=== PATIENT | female | born 1980 | race Caucasian/White ===

== ENCOUNTER → 2022-02-06 14:52 | Outpatient (BNVA) | payer OTHER, SELFPAY | PROVIDERS: Visit Provider Obstetrics & Gynecology | DX: N92.1 Excessive and frequent menstruation with irregular cycle (principal); N94.89 Other specified conditions associated with female genital organs and menstrual cycle; R10.2 Pelvic and perineal pain | CPT/HCPCS: 76830; 81000; 87086; 87624 ==

== ENCOUNTER 2022-02-11 12:11 | Day surgery (SDC) | payer OTHER, SELFPAY ==
[2022-02-11] VITALS (9 sets, daily range): BP systolic 109–140; BP diastolic 59–90; PULSE 70–92; RESP 16–22; TEMP 36.2–37.2; O2SAT 95–100; BMI 31.3
[2022-02-11] MEDS: sodium chloride 0.9% 1,000 ML 30 ML IV (13:30)
[2022-02-11] MEDS: scopolamine 1.5 Patch 1 PATCH TRANSDERMA (13:34)
[2022-02-11 13:45] LABS: OR HCG Qualitative Urine Negative (Negative)
--- NOTE | 2022-02-11 14:40 | P.OP_ITS ---
Operative Report Date of procedure: February 11, 2022 Pre-op diagnosis: Preop Diagnosis aub, cervical thickening, uterine fibroids Post-op diagnosis: same Procedure done: hysteroscopy, dilation and curettage with myosure Specimens removed/disposition: endometrial curettings, endocervical curettings to pathology Surgeon: Clara Gooden Anesthesia: MAC Estimated blood loss (mL): 2 IV fluids (mL): 700 Complications: none Findings: 8 week sized uterus, uterine fibroid and endocervical polyps hysteroscopy deficit 750 ml Condition: stable Disposition: PACU Procedure: The patient was taken to the operating room where monitored anesthesia was administered and to be adequate. She was prepped and draped in the normal sterile fashion in the dorsal lithotomy position in [facility]. A weighted speculum was placed into the vagina and the anterior lip of the cervix grasped with a single-tooth tenaculum. The uterus was sounded to 8 cm. The cervix was dilated to 16 Wol[place]. The hysteroscope was advanced into the endometrial cavity. There was moderate tissue anteriorly and a possible fibroid at 9:00. There were also many endocervical polyps visualized on the way into the uterus. The MyoSure device was activated and the uterine tissue was removed. The MyoSure device was removed and an endocervical curettage performed. Pictures were taken pre and post procedure. The area on the cervix which had previously been bleeding in the office, was cauterized. This was around the cervical os. All instruments were removed. The patient tolerated the procedure well. Sponge lap and needle counts were correct x3. She was taken to the recovery room in stable condition.
--- NOTE | 2022-02-11 14:41 | W.PM.OPSUD ---
Surgery/Procedure H&P Update DATE OF PROCEDURE: February 11, 2022 DATE H&P PERFORMED: 02/06/22 H&P UPDATE INFORMATION: I have reviewed H&P completed within last 30 days, I have examined patient prior to procedure and No changes to prior documentation PREOP DIAGNOSIS: aub, cervical thickening, uterine fibroids PLANNED PROCEDURE: Operation Date: 02/11/22 14:20 Proposed Procedures p Hysteroscopy, dilation and curettage with Myosure 99679,N93.9,D25.9(Not Applicable) - Clara Gooden MD s Dilation And Curettage (D&C)(Not Applicable) - Clara Gooden MD Related Problem List Diagnoses (1) Uterine fibroid: (2) Abnormal uterine bleeding (AUB):
--- NOTE | 2022-02-11 14:44 | ANES.PREANE2 ---
Pre-Anesthetic Assessment Height/Weight: Height 1.73 m Weight 93.44 kg Temp Pulse Resp BP Pulse Ox O2 Del Method 97.2 F L 73 16 124/90 95 02/11/22 13:16 02/11/22 13:16 02/11/22 13:16 02/11/22 13:16 02/11/22 13:16 02/11/22 13:16 Preop Diagnosis: aub, cervical thickening, uterine fibroids Operation Date: 02/11/22 14:20 Proposed Procedures p Hysteroscopy, dilation and curettage with Myosure 56095,N93.9,D25.9(Not Applicable) - Clara Gooden MD s Dilation And Curettage (D&C)(Not Applicable) - Clara Gooden MD Familial anesthetic complications: none Was Beta Carrie taken within 24 hours: N/A Was Clonidine taken within 24 hours: N/A Last intake: Intake Last Liquid Date 02/10/22 Last Liquid Time 20:00 Last Solid Date 02/10/22 Last Solid Time 20:00 Social No alcohol and No tobacco Exam alert, oriented x 3, clear to auscultation bilaterally and regular rate & rhythm Airway Submandibular: within normal limits Cervical ROM: within normal limits Mallampati: Class II Dentition: full CV/HEM Arrythmia (ablated WPW) Anesthetic Plan ASA status: 2 Anesthesia: General Medications/Allergies Home Medications Medication Instructions Recorded Confirmed Last Taken Type cetirizine 10 mg tablet (24Hour 10 mg PO DAILY PRN allergies 02/06/22 02/11/22 02/10/22 History Allergy) diltiazem HCl 120 mg 120 mg PO DAILY 02/06/22 02/11/22 02/11/22 History capsule,extended release 24 hr Allergies Allergy/AdvReac Type Severity Reaction Status Date / Time povidone-iodine Allergy Intermediate ALGY-Rash Verified 02/11/22 13:11 [From Betadine] Current Medications Generic Name Dose Route Start Last Admin Trade Name Freq PRN Reason Stop Dose Admin Sodium Chloride 1,000 mls @ 30 mls/hr 02/11/22 12:30 02/11/22 13:30 Sodium Chloride 0.9% IV 02/12/22 12:29 30 mls/hr .Q24H DAVID Administration PFSH Anesthesia Medical History (Updated 02/07/22 @ 12:11 by Clara Gooden MD) No pertinent past medical history Neg hx: HTN, DM, Thyroid, DVT/PE PCP: WPW (Enhjx-Lqmwgtqsm-Sjjkq syndrome) Surgical History (Updated 02/07/22 @ 12:11 by Clara Gooden MD) History of back surgery (~2012) History of cholecystectomy Family History (Updated 02/06/22 @ 14:02 by Shayna Hector LPN) Grandfather Diabetes Mother Heart disease Hypertension Sister Thyroid disease Denies family history of Colon cancer Ovarian cancer Breast cancer Uterine cancer Stroke Data Anesthesia Cardiac Studies: No Data to Display
[2022-02-11] MEDS: ceFAZolin 2,000 MG in sodium chloride 0.9% (plus) 50 ML 100 MG IV (14:52)
--- NOTE | 2022-02-11 15:43 | SUR.PHASEI ---
1538 PT TO PACU 5 PT AWAKE ALERT ORIENTED X 3 MONITOR SR WITH NO ECTOPY, ABDOMEN SOFT NO VAGINAL BLEEDING NOTED BILAT SCDS ON IV TO RT AC #20 WITH NS 500ML UP AT KVO RATE, ID BAND TO RT WRIST, PT ID'D WITH 2 IDENTIFIERS. PT DENIES PAIN AND NAUSEA, WARM BLANKET TO PT.
--- NOTE | 2022-02-11 15:49 | PM.DCS ---
Discharge Providers Date of Admission: 02/11/22 Date of Discharge: February 11, 2022 Attending Provider at Discharge: Clara Gooden MD Primary Care Provider: Chelsea Butt MD Diagnoses at Discharge Discharge Diagnosis (1) Uterine fibroid: Status: Acute (2) Abnormal uterine bleeding (AUB): Status: Acute Reason for Visit Reason for Visit: leiomyoma of uterus, unspecified Hospital Course Hospital Course The patient was admitted for surgery. She did well postoperatively and was ready for discharge. Discharge Data Studies Completed and Pending Pending at discharge Category Date Time Status ES surgery / GI images Routine Exams 02/11/22 14:45 Taken Pathology: Surgical [PTH] Routine Pth 02/11/22 15:42 Ordered Laboratory Results Urine HCG, Qual Negative (Negative) 02/11/22 13:30 Vitals Last Vital Signs Temp 97.9 F 02/11/22 15:38 Pulse 86 02/11/22 15:45 Resp 20 H 02/11/22 15:45 BP 116/59 02/11/22 15:45 Pulse Ox 99 02/11/22 15:45 O2 Del Method 02/11/22 15:45 Discharge Plan Discharge Patient Disposition: Home Condition: Stable Prescriptions: Continued diltiazem HCl 120 mg capsule,extended release 24hr 120 mg PO DAILY cetirizine [24Hour Allergy] 10 mg tablet 10 mg PO DAILY PRN (Reason: allergies) Discharge Orders: Discharge Order (Routine); Ordered 02/11/22 Ordered By: Clara Gooden Discharge Attestations Time Spent in Discharge Care*: less than 30 min Quality Metrics Clinical Quality Measures [ No reported AMI, CVA or VTE this stay] Coding Level of Care Code Acute Chg FW DC note Diagnoses Uterine fibroid D25.9 Abnormal uterine bleeding (AUB) N93.9
--- NOTE | 2022-02-11 15:59 | SUR.PHASEI ---
PT AWAKE ALERT, DR JOAQUIN AT BEDSIDE TALKING WITH PT, SMALL AMT OF LT PINK VAGINAL DRAINAGE. PT TO OPS AREA.
--- NOTE | 2022-02-11 16:13 | ANE.PACU2 ---
Inpatient post-anesthesia follow up: Airway intact: Yes Vital signs: Temperature 98.9 F Pulse Rate 79 Respiratory Rate 20 Blood Pressure 133/84 Pulse Oximetry 99 Oxygen Delivery Me thod Room Air Oxygen Flow Rate Fraction of Inspir ed Oxygen Hydration adequate: Yes Nausea and vomiting: No Pain level: 3 Mental status: Baseline
--- NOTE | 2022-02-11 16:31 | SUR.PHASEII ---
16:25 patient condition reviewed with doctor Calix. PO pain medication ordered.
[2022-02-11] MEDS: HYDROcodone-acetaminophen 10-325 mg Tablet 1 TAB PO (16:45)
== END 2022-02-11 17:20 | disposition home or self-care (01) ==
PROVIDERS: Anesthesiology; PCP Internal Medicine; Visit Provider Obstetrics & Gynecology
PROC: 0UDB8ZZ Extraction of Endometrium, Via Natural or Artificial Opening Endoscopic (ICD-10-PCS; CPT 58558; principal; 2022-02-11 14:10)
PROC: (CPT 58120; 2022-02-11 14:10)
DX: N93.9 Abnormal uterine and vaginal bleeding, unspecified (principal); D25.9 Leiomyoma of uterus, unspecified
CPT/HCPCS: 58558; 81025; 84703; 88305; J0690; J1100; J1885; J2405; J2704; J3010; J7030

== ENCOUNTER → 2022-02-19 11:43 | Outpatient (BNVA) | payer OTHER, SELFPAY | PROVIDERS: PCP Internal Medicine; Visit Provider Obstetrics & Gynecology | DX: N88.9 Noninflammatory disorder of cervix uteri, unspecified (principal); N93.9 Abnormal uterine and vaginal bleeding, unspecified | CPT/HCPCS: 83001; 83002; 84443 ==

== ENCOUNTER 2022-03-12 14:54 | Observation (INO) | payer OTHER, SELFPAY ==
--- NOTE | 2022-03-07 10:31 | P.ANESASSM_ITS ---
Pre-Anesthetic Assessment Height/Weight: Height 1.73 m Weight 91.172 kg Preop Diagnosis: aub, cervical thickening, uterine fibroids Operation Date: 03/12/22 09:55 Proposed Procedures p Laparoscopic assisted vaginal hysterectomy, bilateral salpingo-oophorectomy 07270, possible sling 83650, possible anterior and posterior repair 19989,N93.9,R10.2,N81.4(Not Applicable) - Clara Gooden MD s Sling(Not Applicable) - Clara Gooden MD s Anterior Repair(Not Applicable) - Clara Gooden MD s Posterior Repair(Not Applicable) - Clara Gooden MD Familial anesthetic complications: None Was Beta Carrie taken within 24 hours: N/A Was Clonidine taken within 24 hours: N/A Social No alcohol and No tobacco Exam alert, oriented x 3, clear to auscultation bilaterally and regular rate & rhythm Airway Mallampati: Class II Dentition: full CV/HEM WPW s/p ablation with no further issues Anesthetic Plan ASA status: 2 Anesthesia: General Risk of > 500 ml blood loss (7ml/kg in children): No Medications/Allergies Home Medications Medication Instructions Recorded Confirmed Last Taken Type cetirizine 10 mg tablet (24Hour 10 mg PO DAILY PRN allergies 02/06/22 03/07/22 03/07/22 History Allergy) diltiazem HCl 120 mg 120 mg PO DAILY 02/06/22 03/07/22 03/07/22 History capsule,extended release 24 hr Allergies Allergy/AdvReac Type Severity Reaction Status Date / Time povidone-iodine Allergy Intermediate ALGY-Rash Verified 02/19/22 10:38 [From Betadine] [facility] Anesthesia Medical History (Updated 02/20/22 @ 11:47 by Clara Gooden MD) No pertinent past medical history Neg hx: HTN, DM, Thyroid, DVT/PE PCP: WPW (Rsxig-Nwcdrveyr-Brjzv syndrome) Surgical History (Updated 02/07/22 @ 12:11 by Clara Gooden MD) History of back surgery (~2012) History of cholecystectomy Family History (Updated 02/06/22 @ 14:02 by Shayna Hector LPN) Grandfather Diabetes Mother Heart disease Hypertension Sister Thyroid disease Denies family history of Colon cancer Ovarian cancer Breast cancer Uterine cancer Stroke Social History (Updated 02/06/22 @ 14:02 by Shayna Hector LPN) Smoking and tobacco status: never smoked Data Anesthesia Cardiac Studies: No Data to Display
[2022-03-07 10:34] LABS: Add Urine Microscopic? NO; Charge for UA Resulting for Rev
[2022-03-07 10:39] LABS: Basophils % 0.5 %; Eosinophils # 0.1 10^3/uL (0.0-0.8); Eosinophils % 1.7 %; Hematocrit 40.7 % (37.0-47.0); Hemoglobin 13.2 g/dL (11.5-15.3); Lymphocytes % 46.3 %; Mean Corpuscular HGB Conc 32.4 g/dL (30.0-36.0); Mean Corpuscular Hemoglobin 29.5 pg (28.0-34.0); Mean Corpuscular Volume 90.8 fl (81-99); Mean Platelet Volume 10.7 fL (7.4-10.4); Monocytes # 0.4 10^3/uL (0.2-0.9); Monocytes % 8.3 %; Neutrophils # 1.81 10^3/uL (1.8-7.7); Nucleated Red Blood Cells % 0 %; Platelet Count 219 10^3/cmm (130-400); Red Blood Count 4.48 10^6/uL (4.1-5.3); Red Cell Distribution Width 12.8 % (12.1-15.1); White Blood Count 4.2 10^3/uL (4.0-10.0)
[2022-03-07 10:41] LABS: Bilirubin Urine Neg (Negative); Blood Urine Neg (Negative); Glucose Urine UA Norm (Normal); Ketones Urine Negative (Negative); Leukocyte Esterase Urine Negative (Negative); Nitrate Urine Negative (Negative); Protein Urine Neg (Negative); Specific Gravity, Urine 1.015 (1.005-1.030); Urine Appearance Clear (CLEAR); Urine Color Yellow (Yellow); Urobilinogen Urine Neg (Negative); pH Urine 6 (5-7)
[2022-03-07 10:52] LABS: Anion Gap 13.5 (5-19); Blood Urea Nitrogen 11 mg/dL (6-20); Calcium 9.5 mg/dL (8.5-10.5); Carbon Dioxide 26 mmol/L (22-29); Chloride 103 mmol/L (98-107); Glomerular Filtration Rate 91.3 mL/min (90-130); Glucose 97 mg/dL (65-115); Osmolality Calculated 285 mOsm/kg (285-295); Potassium 4.5 mmol/L (3.5-5.1); Sodium 138 mmol/L (136-145)
[2022-03-12] VITALS (29 sets, daily range): BP systolic 106–145; BP diastolic 57–93; PULSE 61–130; RESP 16–20; TEMP 36.1–36.9; O2SAT 92–98; BMI 30.5
[2022-03-12 08:59] LABS: OR HCG Qualitative Urine Negative (Negative)
[2022-03-12] MEDS: sodium chloride 0.9% 1,000 ML 30 ML IV (09:09)
[2022-03-12] MEDS: phenazopyridine 100 mg Tablet 200 MG PO ×3 (09:10→20:15)
[2022-03-12] MEDS: CELEcoxib 200 mg Capsule 400 MG PO (09:10)
[2022-03-12] MEDS: gabapentin 300 mg Capsule PO (09:10)
[2022-03-12] MEDS: acetaminophen 1,000 MG/100 ML PIGGYBACK 400 MG IV (09:11)
[2022-03-12] MEDS: scopolamine 1.5 Patch 1 PATCH TRANSDERMA (09:11)
--- NOTE | 2022-03-12 09:24 | W.PM.OPSUD ---
Surgery/Procedure H&P Update DATE OF PROCEDURE: March 12, 2022 DATE H&P PERFORMED: 03/07/22 H&P UPDATE INFORMATION: I have reviewed H&P completed within last 30 days, I have examined patient prior to procedure and No changes to prior documentation PREOP DIAGNOSIS: uterine prolapse PLANNED PROCEDURE: Operation Date: 03/12/22 09:55 Proposed Procedures p Laparoscopic assisted vaginal hysterectomy, bilateral salpingo-oophorectomy 79933, possible sling 14882, possible anterior and posterior repair 22301,N93.9,R10.2,N81.4(Not Applicable) - Clara Gooden MD s Sling(Not Applicable) - Clara Gooden MD s Anterior Repair(Not Applicable) - Clara Gooden MD s Posterior Repair(Not Applicable) - Clara Gooden MD Related Problem List Diagnoses (1) Uterine prolapse: (2) Pelvic pain: (3) Uterine fibroid: (4) Abnormal uterine bleeding (AUB):
[2022-03-12 09:28] LABS: Basophils % 0.5 %; Eosinophils # 0.1 10^3/uL (0.0-0.8); Eosinophils % 2.6 %; Hematocrit 43.3 % (37.0-47.0); Hemoglobin 14.2 g/dL (11.5-15.3); Lymphocytes % 45.9 %; Mean Corpuscular HGB Conc 32.8 g/dL (30.0-36.0); Mean Corpuscular Volume 91.4 fl (81-99); Mean Platelet Volume 11.4 fL (7.4-10.4); Monocytes # 0.4 10^3/uL (0.2-0.9); Neutrophils # 1.81 10^3/uL (1.8-7.7); Nucleated Red Blood Cells % 0 %; Platelet Count 229 10^3/cmm (130-400); Red Blood Count 4.74 10^6/uL (4.1-5.3); Red Cell Distribution Width 12.9 % (12.1-15.1); White Blood Count 4.3 10^3/uL (4.0-10.0)
[2022-03-12] MEDS: HYDROmorphone 1 mg/mL INJ 1 mL 0.5 MG IVP ×3 (09:35→12:57)
[2022-03-12] MEDS: ceFAZolin 2,000 MG in sodium chloride 0.9% (plus) 50 ML 100 MG IV ×3 (09:42→20:15)
[2022-03-12 09:58] LABS: Blood Urea Nitrogen 14 mg/dL (6-20); Calcium 9.5 mg/dL (8.5-10.5); Carbon Dioxide 25 mmol/L (22-29); Chloride 104 mmol/L (98-107); Creatinine Clr Calc Pharmacy 142.7774; Glomerular Filtration Rate 109.1 mL/min (90-130); Glucose 89 mg/dL (65-115); Osmolality Calculated 290 mOsm/kg (285-295); Sodium 140 mmol/L (136-145)
[2022-03-12 10:18] LABS: Anion Gap 14.5 (5-19); Potassium 3.5 mmol/L (3.5-5.1)
--- NOTE | 2022-03-12 10:18 | P.ANESUD_ITS ---
Pre-Anesthetic Update Pre-Anesthetic Assessment: Date of Surgery/Procedure: 03/12/22 Preop Alannah gnosis: uterine prolapse Proposed Procedure: Operation Date: 03/12/22 09:55 Proposed Procedures p Laparoscopic assisted vaginal hysterectomy, bilateral salpingo-oophorectomy 21166, possible sling 28328, possible anterior and posterior repair 44072,N93.9,R10.2,N81.4(Not Applicable) - Clara Gooden MD s Sling(Not Applicable) - Clara Gooden MD s Anterior Repair(Not Applicable) - Clara Gooden MD s Posterior Repair(Not Applicable) - Clara Gooden MD Any changes to Pre-Anesthetic Assessment?: No Last Intake: Intake Last Liquid Date 03/11/22 Last Liquid Time 20:30 Last Solid Date 03/11/22 Last Solid Time 20:30 Labs Last 48hrs: Short CBC 03/12/22 Range/Units 09:00 WBC 4.3 (4.0-10.0) 10^3/ uL Hgb 14.2 (11.5-15.3) g/dL Hct 43.3 (37.0-47.0) % MCV 91.4 (81-99) fl Plt Count 229 (130-400) 10^3/c mm Neut % (Auto) 42.0 % Neut # (Auto) 1.81 (1.8-7.7) 10^3/u L BMP 03/12/22 09:00 Sodium 140 Potassium 3.5 Chloride 104 Carbon Dioxide 25 BUN 14 Creatinine 0.6 Glucose 89 Calcium 9.5 Blood Bank 03/12/22 09:00 Blood Type O Positive Rho(D) Type Positive Vitals: Temperature 97.0 F L 03/12/22 08:52 Temperature Source Temporal Artery S can 03/12/22 08:52 Pulse Rate 85 03/12/22 08:52 Respiratory Rate 18 03/12/22 08:52 Blood Pressure 145/85 03/12/22 08:52 Blood Pressure Jerica n 105 03/12/22 08:52 Pulse Oximetry 97 03/12/22 08:52 Oxygen Delivery Me thod 03/12/22 08:53 Exam: Pre-Anes Outpt Exam: alert, oriented x 3, clear to auscultation bilaterally and regular rate & rhythm Cardiac Studies: No Data to Display
[2022-03-12] MEDS: vasopressin 20 unit/mL INJ (10:33)
[2022-03-12] MEDS: fentaNYL 50 mcg/mL INJ 2mL IVP (11:48)
--- NOTE | 2022-03-12 12:18 | P.OP_ITS ---
Operative Report Date of procedure: March 12, 2022 Pre-op diagnosis: Preop Diagnosis uterine prolapse Post-op diagnosis: same Post-op findings: uterus leaning towards the right adnexae. Some swelling of the right pelvic sidewall Procedure done: LAVH with bilateral salpingectomy. Specimens removed/disposition: uterus and bilateral fallopian tubes to pathology Surgeon: Clara Gooden Anesthesia: General Estimated blood loss (mL): 100 IV fluids (mL): 1,000 Urine output (mL): 200 Complications: none Condition: stable Disposition: PACU Procedure: The patient was taken to the operating room where general anesthesia was administered and found to be adequate. She was prepped and draped in the normal sterile fashion in the dorsal lithotomy position in [facility]. A Purcell catheter was placed. A weighted speculum was placed into the vagina and the anterior lip of the cervix was grasped with a single tooth tenaculum. The Zumi uterine manipulator was placed. The weighted speculum was removed. The gloves were changed and attention was turned to the abdomen. A 5 mm sumpraumbilical incision was made. Using a 5 mm port with the camera, the port was placed into the abdomen. The abdomen was insufflated. Two low, lateral 5 mm ports were placed on the left and right under direct visualization from the camera. The right tube was grasped and elevated. Using the laparoscopic cautery, the mesosalpinx was divided between the ovary and tube. The tube was removed. This was performed the same way on the left. The uteroovarian ligaments as well as the round ligaments were ligated. Attention was then turned to the vaginal portion of the procedure. The weighted speculum was placed into the vagina. The zumi manipulator was removed. The single tooth tenaculum was removed and replaced with the isaak's tenaculum. 10 mL of dilute Pitressin was injected at the vesicovaginal junction. A circumferential incision was made at the vesicovaginal junction and the vaginal mucosa reflected cephalad. The posterior peritoneum was entered sharply with the Metzenbaum scissors and the long weighted speculum replaced. Using the Tami clamps the uterosacral ligaments were clamped cut and suture- ligated. The anterior peritoneum was entered sharply with the metzenbaum scissors. Then sequentially the uterine arteries and cardinal ligaments were clamped cut and suture-ligated. A single-tooth tenaculum was used to deliver the uterus. The remaining segement of the utero-ovarian ligaments were clamped cut and suture-ligated bilaterally and the specimen was removed. There was good hemostasis with only mild bleeding from the cuff. The peritoneum was closed with a pursestring using 2-0 Vicryl. The vaginal cuff was closed with 0 Vicryl in a running locked pattern incorporating the uterosacral ligaments into the lateral aspects of the vaginal cuff. The Purcell catheter was removed and the cystoscope advanced into the bladder. The patient was given pyridium and bilateral spill was noted. There were no injuries or deficits noted in the bladder. The cystoscope was removed and the Purcell was replaced. Vaginal packing was placed for good hemostasis. The gloves and gowns were changed and attention was turned to the abdomen. The ports were closed with 2-0 monocryl with skin glue. The patient tolerated the procedure well. Sponge lap and needle counts were correct x3. She was taken to the recovery room in stable condition.
--- NOTE | 2022-03-12 13:06 | ANE.PACU2 ---
Inpatient post-anesthesia follow up: Airway intact: Yes Vital signs: Temperature 97.5 F Pulse Rate 89 Respiratory Rate 17 Blood Pressure 123/61 Pulse Oximetry 94 Oxygen Delivery Me thod Room Air Oxygen Flow Rate 6 Fraction of Inspir ed Oxygen Hydration adequate: Yes Nausea and vomiting: No Pain level: 3 Mental status: Baseline
[2022-03-12] MEDS: oxyCODONE-APAP 5-325 mg Tablet PO (15:40)
[2022-03-12] MEDS: dextrose 5%-lactated ringers 1,000 ML 125 ML IV ×2 (15:47→23:38)
[2022-03-12] MEDS: ketorolac 30 mg/mL INJ IVP ×2 (15:48→22:58)
[2022-03-12] MEDS: docusate sodium 100 mg Capsule PO (18:33)
[2022-03-12] MEDS: HYDROmorphone 1 mg/mL INJ 1 mL 1.5 MG IVP (20:34)
[2022-03-13] VITALS: BP 108/64; PULSE 87; RESP 16; TEMP 36.3; O2SAT 96
[2022-03-13 04:00] VITALS: BP 104/60; PULSE 71; RESP 16; TEMP 36.6; O2SAT 97
[2022-03-13] MEDS: ketorolac 30 mg/mL INJ IVP (04:48)
[2022-03-13 08:04] VITALS: BP 112/66; PULSE 62; RESP 16; TEMP 36.7; O2SAT 94
[2022-03-13 08:27] LABS: Hematocrit 34.9 % (37.0-47.0); Hemoglobin 11.3 g/dL (11.5-15.3); Mean Corpuscular HGB Conc 32.4 g/dL (30.0-36.0); Mean Corpuscular Hemoglobin 29.9 pg (28.0-34.0); Mean Corpuscular Volume 92.3 fl (81-99); Mean Platelet Volume 11.3 fL (7.4-10.4); Platelet Count 181 10^3/cmm (130-400); Red Blood Count 3.78 10^6/uL (4.1-5.3); White Blood Count 7.9 10^3/uL (4.0-10.0)
[2022-03-13] MEDS: phenazopyridine 100 mg Tablet 200 MG PO (08:30)
[2022-03-13] MEDS: dilTIAZem ER (24HR) 120 mg Capsule PO (08:31)
[2022-03-13] MEDS: docusate sodium 100 mg Capsule PO (08:31)
[2022-03-13] MEDS: oxyCODONE-APAP 5-325 mg Tablet PO (08:31)
--- NOTE | 2022-03-13 10:47 | P.DS_ITS ---
Discharge Providers Date of Admission: 03/12/22 14:54 Date of Discharge: March 13, 2022 Attending Provider at Admission: Clara Gooden MD Attending Provider at Discharge: Clara Gooden MD Primary Care Provider: Chelsea Butt MD Diagnoses at Discharge Discharge Diagnosis (1) Uterine prolapse: Status: Acute (2) Pelvic pain: Status: Acute (3) Uterine fibroid: Status: Acute (4) Abnormal uterine bleeding (AUB): Status: Acute Reason for Visit Reason for Visit: N93.9 Hospital Course Hospital Course The patient was admitted for surgery. She did well postoperatively and was ready for discharge on day #1 Physical Exam Narrative: The patient is doing well this morning. She has had her packing and catheter removed. Pain is well controlled. She is ambulating and tolerating a regular diet. Const: COMMON NORMALS: no acute distress, average body habitus, patient oriented x3, no limitations, healthy appearing, alert and well nourished GENERAL APPEARANCE: cooperative, comfortable, well kempt and well developed ORIENTATION/CONSCIOUSNESS: Yes awake, Yes oriented to person and Yes oriented to time Resp: COMMON NORMALS: normal respiratory effort EFFORT & INSPECTION: Yes able to speak in complete sentences GI: COMMON NORMALS: Soft to palpation and non-tender PALPATION: Yes Soft to palpation Extremity: COMMON NORMALS: no calf tenderness Neuro: COMMON NORMALS: patient oriented x3 SENSORIUM/ORIENTATION: Yes a lert, Yes oriented to person and Yes oriented to time Psych: APPEARANCE: Yes well kempt Urinary Catheter Management: Purcell: Cath Placed During This Visit: yes Reason for Continuing Indwelling Catheter: Perioperative Use in Selected Surgeries Urinary Catheter Date of Insertion: 03/12/22 Urinary Catheter Time of Insertion: 10:08 Discharge Data Studies Completed and Pending Pending at discharge Category Date Time Status Urine Culture Routine Lab 03/12/22 10:11 Ordered Pathology: Surgical [PTH] Routine Pth 03/12/22 11:50 Received Laboratory Results WBC 7.9 10^3/uL (4.0-10.0) 03/13/22 07:45 RBC 3.78 10^6/uL (4.1-5.3) L 03/13/22 07:45 Hgb 11.3 g/dL (11.5-15.3) L 03/13/22 07:45 Hct 34.9 % (37.0-47.0) L 03/13/22 07:45 MCV 92.3 fl (81-99) 03/13/22 07:45 MCH 29.9 pg (28.0-34.0) 03/13/22 07:45 MCHC 32.4 g/dL (30.0-36.0) 03/13/22 07:45 RDW 13.0 % (12.1-15.1) 03/13/22 07:45 Plt Count 181 10^3/cmm (130-400) 03/13/22 07:45 MPV 11.3 fL (7.4-10.4) H 03/13/22 07:45 Neut % (Auto) 42.0 % 03/12/22 09:00 Lymph % (Auto) 45.9 % 03/12/22 09:00 [place] % (Auto) 9.0 % 03/12/22 09:00 Eos % (Auto) 2.6 % 03/12/22 09:00 Baso % (Auto) 0.5 % 03/12/22 09:00 Neut # (Auto) 1.81 10^3/uL (1.8-7.7) 03/12/22 09:00 Lymph # (Auto) 2.0 10^3/uL (0.8-4.8) 03/12/22 09:00 [place] # (Auto) 0.4 10^3/uL (0.2-0.9) 03/12/22 09:00 Eos # (Auto) 0.1 10^3/uL (0.0-0.8) 03/12/22 09:00 Baso # (Auto) 0.0 10^3/uL (0.0-0.1) 03/12/22 09:00 Nucleated RBC % (auto) 0 % 03/12/22 09:00 Nucleated RBCs # 0.0 /100WBC 03/12/22 09:00 Sodium 140 mmol/L (136-145) 03/12/22 09:00 Potassium 3.5 mmol/L (3.5-5.1) 03/12/22 09:00 Chloride 104 mmol/L (98-107) 03/12/22 09:00 Carbon Dioxide 25 mmol/L (22-29) 03/12/22 09:00 Anion Gap 14.5 (5-19) 03/12/22 09:00 BUN 14 mg/dL (6-20) 03/12/22 09:00 Creatinine 0.6 mg/dL (0.5-0.9) 03/12/22 09:00 GFR Calculation 109.1 mL/min (90-130) 03/12/22 09:00 Glucose 89 mg/dL (65-115) 03/12/22 09:00 Calculated Osmolality 290 mOsm/kg (285-295) 03/12/22 09:00 Calcium 9.5 mg/dL (8.5-10.5) 03/12/22 09:00 Urine Color Yellow (Yellow) 03/07/22 10:29 Urine Appearance Clear (CLEAR) 03/07/22 10:29 Urine pH 6 (5-7) 03/07/22 10:29 Ur Specific [place] 1.015 (1.005-1.030) 03/07/22 10:29 Urine Protein Neg (Negative) 03/07/22 10:29 Urine Glucose (UA) Norm (Normal) 03/07/22 10:29 Urine Ketones Negative (Negative) 03/07/22 10:29 Urine Blood Neg (Negative) 03/07/22 10:29 Urine Nitrate Negative (Negative) 03/07/22 10:29 Urine Bilirubin Neg (Negative) 03/07/22 10:29 Urine Urobilinogen Neg mg/dL (Negative) 03/07/22 10:29 Ur Leukocyte Esterase Negative (Negative) 03/07/22 10:29 Urine HCG, Qual Negative (Negative) 03/12/22 08:57 Blood Type O Positive 03/12/22 09:00 Rho(D) Type Positive 03/12/22 09:00 Antibody Screen Negative 03/12/22 09:00 Vitals Last Vital Signs Temp 98.0 F 03/13/22 08:04 Pulse 62 03/13/22 08:04 Resp 16 03/13/22 08:04 BP 112/66 03/13/22 08:04 Pulse Ox 94 03/13/22 08:04 O2 Del Method 03/13/22 08:04 O2 Flow Rate 6 03/12/22 11:53 Discharge Plan Discharge Patient Disposition: Home Condition: Stable Prescriptions: New ibuprofen 800 mg Tablet 800 mg PO Q8H Qty: 30 0RF oxycodone-acetaminophen 5-325 mg Tablet 1 tab PO Q4H PRN (Reason: Moderate To Severe Pain) Qty: 30 0RF docusate sodium 100 mg Capsule 100 mg PO BID Qty: 60 0RF Continued diltiazem HCl 120 mg capsule,extended release 24hr 120 mg PO DAILY cetirizine [24Hour Allergy] 10 mg tablet 10 mg PO DAILY PRN (Reason: allergies) Discharge Orders: Discharge Order (Routine); Ordered 03/13/22 Ordered By: Clara Gooden Patient Instructions: Opioid Safety Discharge Attestations Time Spent in Discharge Care*: less than 30 min Quality Metrics Clinical Quality Measures [ No reported AMI, CVA or VTE this stay] Coding Level of Care Code Acute g [facility] note Diagnoses Uterine prolapse N81.4 Pelvic pain R10.2 Uterine fibroid D25.9 Abnormal uterine bleeding (AUB) N93.9
[2022-03-13] MEDS: ibuprofen 800 mg tablet PO (12:00)
--- NOTE | 2022-03-13 12:28 | PC.NURSE ---
Discharge teaching completed. Six tabs of Oxycodone and Acetaminophen 5/325mg sent home with patient from hospital stock due to pharmacies being closed. Medications counted and signed with patient. Paperwork completed. Entered into chart. Leaves via private vehicle with .
[2022-03-13 12:30] VITALS: BP 112/66; PULSE 62; RESP 16; TEMP 36.7; O2SAT 94
== END 2022-03-13 12:32 | disposition home or self-care (01) ==
LOC: MEDSURG 14:54
PROVIDERS: Anesthesiology; Admitting Provider Obstetrics & Gynecology; PCP Internal Medicine; Visit Provider Obstetrics & Gynecology
PROC: 0UT9FZZ Resection of Uterus, Via Natural or Artificial Opening With Percutaneous Endoscopic Assistance (ICD-10-PCS; CPT 58552; principal; 2022-03-12 09:45)
PROC: (CPT 58661; 2022-03-12 09:45)
DX: N81.4 Uterovaginal prolapse, unspecified (principal)
CPT/HCPCS: 58552; 36415; 80048; 81003; 81025; 84703; 85025; 85027; 86850; 86900; 88305; G0378; J0131; J0690; J1100; J1170; J1200; J1885; J2250; J2405; J2704; J2710; J3010; J3490; J7030; J7121

== ENCOUNTER → 2022-04-23 13:40 | Outpatient (BNVA) | payer OTHER, SELFPAY | PROVIDERS: PCP Internal Medicine; Visit Provider Obstetrics & Gynecology | DX: N39.0 Urinary tract infection, site not specified (principal) | CPT/HCPCS: 81000 ==

== ENCOUNTER → 2023-01-29 16:00 | Outpatient (BNVA) | payer OTHER, SELFPAY | PROVIDERS: PCP Internal Medicine; Visit Provider Nurse Practitioner Women's Health | DX: R30.0 Dysuria | CPT/HCPCS: 81000 ==

== ENCOUNTER 2023-05-20 11:51 | Outpatient (CLI) | payer OTHER, SELFPAY ==
--- NOTE | 2023-05-20 11:55 | MM_ITS ---
WS: [id number] BILATERAL 3D TOMOSYNTHESIS DIGITAL SCREENING MAMMOGRAPHY WITH CAD CLINICAL INFORMATION: Z12.39 - Encounter for other screening for malignant neop... HISTORY: Screening mammogram. Bilateral breast pain COMPARISON: 2020 TECHNIQUE: Bilateral CC and MLO views. FINDINGS: The breasts are composed of heterogeneous fibroglandular density tissue, which can limit the detectio n of small underlying mass lesions. No suspicious mass, asymmetry, calcifications, or architectural d istortion. No evidence of malignancy. Stable dense parenchymal tissue upper outer LEFT breast. A few incidental punctate calcifications. IMPRESSION: MM/[place] [id number] BI-RADS: 2-Benign FOLLOW UP: 1 Year Follow-up Recommend return to annual screening mammography.
== END 2023-05-20 11:52 | disposition home or self-care (01) ==
LOC: RAD 11:51
PROVIDERS: PCP Internal Medicine; Visit Provider Nurse Practitioner Women's Health
DX: Z12.39 Encounter for other screening for malignant neoplasm of breast (principal); Z12.31 Encounter for screening mammogram for malignant neoplasm of breast
CPT/HCPCS: 77063; 77067

== ENCOUNTER → 2025-02-15 12:34 | Outpatient (BNVA) | payer OTHER, SELFPAY | PROVIDERS: PCP Internal Medicine; Visit Provider Nurse Practitioner Women's Health | DX: Z01.419 Encounter for gynecological examination (general) (routine) without abnormal findings (principal) | CPT/HCPCS: 80053; 82306; 82465; 82670; 83036; 83718; 83721; 84402; 84403; 84443; 85025 ==

== ENCOUNTER 2025-04-06 09:00 | Outpatient (CLI) | payer OTHER, SELFPAY ==
--- NOTE | 2025-04-06 09:20 | MM_ITS ---
WS: [id number] BILATERAL SCREENING DIGITAL TOMOSYNTHESIS MAMMOGRAM WITH CAD HISTORY: Z12.39 - Encounter for other screening for malignant neop... COMPARISON: None available. 05/20/2023, 05/22/2020 Bilateral CC and MLO views with tomosynthesis and synthetic mammography submitted. Computer aided detection analyzed. Breast composition: The breasts are heterogeneously dense, which may obscure small masses. No suspicious masses, microcalcifications or architectural distortion. Benign calcifications. MM/MM scr tomosynthesis [id number] IMPRESSION: BI-RADS: 2 - Benign FOLLOW UP: 1 Year Follow-up
== END 2025-04-06 09:01 | disposition home or self-care (01) ==
LOC: RAD 09:02
PROVIDERS: PCP Internal Medicine; Visit Provider Nurse Practitioner Women's Health
DX: Z12.31 Encounter for screening mammogram for malignant neoplasm of breast (principal); Z01.419 Encounter for gynecological examination (general) (routine) without abnormal findings; N95.1 Menopausal and female climacteric states; N95.9 Unspecified menopausal and perimenopausal disorder; R92.333 Mammographic heterogeneous density, bilateral breasts; R92.1 Mammographic calcification found on diagnostic imaging of breast
CPT/HCPCS: 36415; 77063; 77067; 82670; 84402; 84403